=== PATIENT | male | born 1945 | race Caucasian/White ===

== ENCOUNTER 2020-10-05 19:00 | Emergency (ER) | payer MEDICARE, BC ==
[2020-10-05] MEDS ORDERED: Bacitracin Oint 1 GM U/D Packet TOP ONE (20:35)
[2020-10-05 20:40] VITALS: BP 161/61; PULSE 76
--- NOTE | 2020-10-05 21:02 | EDM.PDOC ---
ED HPI GENERAL MEDICAL PROBLEM - General Chief Complaint: Laceration Stated Complaint: CUT LEFT HAND WEBBING WITH KNIFE Time Seen by Provider: 10/05/20 20:33 Source of Information: Reports: Patient History Limitations: Reports: No Limitations - History of Present Illness INITIAL COMMENTS - FREE TEXT/NARRATIVE: Brigitte is a 75-year-old male presenting to the ED for evaluation of a laceration to the webbing of the left thumb. 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 The zip tie gave way causing the knife to come across and incised the webbing of the left thumb. The patient is not on any anticoagulation. Bleeding was controlled upon arrival. He is up-to-date on his tetanus which was last done in 2019. Patient has damage to the hypothenar and thenar muscles secondary to previous injury. The wound goes into the epidermis and dermis but does not appear to involve any of the deeper tissues like muscle. Patient denies any numbness or tingling. 4 Pain Score (Numeric/FACES): 4 - Related Data Allergies Allergy/AdvReac Type Severity Reaction Status Date / Time Penicillins Allergy Hives Verified 10/05/20 20:46 Home Meds: Home Meds Aspirin [Low Dose Aspirin EC] 81 mg PO BID 08/14/15 [History] Ibuprofen 800 mg PO BID PRN 08/14/15 [History] Multivitamin [Multiple Vitamins] 1 tab PO DAILY 08/14/15 [History] PARoxetine HCl [Paroxetine HCl] 20 mg PO DAILY 08/14/15 [History] Pantoprazole [ProTONIX] 40 mg PO DAILY 08/14/15 [History] amLODIPine [Norvasc] 5 mg PO DAILY 08/14/15 [History] atenoloL [Atenolol] 100 mg PO DAILY 08/14/15 [History] atorvaSTATin [Lipitor] 10 mg PO DAILY 08/14/15 [History] metFORMIN HCl [Metformin HCl] 500 mg PO BID 08/14/15 [History] Clopidogrel [Plavix] 1 tab PO DAILY 10/05/20 [History] Past Medical History HEENT History: Reports: Other (See Below) Other HEENT History: right eye prothesis Cardiovascular History: Reports: High Cholesterol, Hypertension Gastrointestinal History: Reports: Chronic Constipation, GERD Genitourinary History: Reports: BPH Musculoskeletal History: Reports: Arthritis, Back Pain, Chronic, Fibromyalgia, Osteoarthritis, Osteoporosis, Other (See Below) Other Musculoskeletal History: right shoulder pain Neurological History: Reports: Head Trauma Psychiatric History: Reports: Depression Endocrine/Metabolic History: Reports: Diabetes, Type II - Past Surgical History HEENT Surgical History: Reports: Eye Surgery Cardiovascular Surgical History: Reports: Percutaneous Transluminal Angioplasty GI Surgical History: Reports: Cholecystectomy, Colonoscopy, EGD Male Surgical History: Reports: None Neurological Surgical History: Reports: Lumbar Spine Musculoskeletal Surgical History: Reports: None Social & Family History - Tobacco Use Tobacco Use Status *Q: Never Tobacco User ED ROS GENERAL - Review of Systems Review Of Systems: See Below Constitutional: Reports: No Symptoms Musculoskeletal: Reports: Hand Pain (Left hand secondary to the laceration) Skin: Reports: Wound (0.5 cm laceration in the webbing of the left thumb) Neurological: Reports: No Symptoms ED EXAM, SKIN/RASH Exam: See Below Exam Limited By: No Limitations Extremities: Normal Range of Motion, Normal Capillary Refill, Other (Left hand pain with a 3.5 cm laceration in the thumb webbing secondary to incision with a utility knife.) Neurological: Alert, Oriented, Normal Cognition, No Motor/Sensory Deficits Skin: Warm, Dry, Wound/Incision (3.5 cm incision in the webbing of the thumb into the soft tissue with gapping.) Location, Skin: Upper Extremity, Left Characteristics: Linear ED SKIN PROCEDURES - Laceration/Wound Repair Left Hand Appearance: Subcutaneous Distal NVT: Neuro & Vascular Intact Local Anesthesia - Lidocaine (Xylocaine): 1% Plain Local Anesthetic Volume: 3cc Skin Prep: Other (Soap and water) Exploration/Debridement/Repair: Wound Explored, In a Bloodless Field, Explored to Base Closed with: Sutures Lac/Wound length In cm: 3.5 Suture Size: 4-0 # of Sutures: 8 Suture Type: Nylon, Interrupted Sterile Dressing Applied: Nurse Tetanus Status Addressed: Yes Complications: No Course - Vital Signs Last Recorded V/S: Last Vital Signs Temp 36.5 C 10/05/20 20:54 Pulse 76 10/05/20 20:54 Resp 16 10/05/20 20:54 BP 161/61 H 10/05/20 20:54 Pulse Ox 96 10/05/20 20:54 - Orders/Labs/Meds Meds: Medications Discontinued Medications Generic Name Dose Route Start Last Admin Trade Name Junaid PRN Reason Stop Dose Admin Bacitracin 1 dose 10/05/20 20:35 10/05/20 20:54 Bacitracin Oint 1 Gm U/D Packet TOP 10/05/20 20:36 1 dose ONETIME ONE Administration Lidocaine HCl 5 ml 10/05/20 20:35 10/05/20 20:54 Lidocaine 1% 5 Ml Sdv INJECT 10/05/20 20:36 5 ml ONETIME ONE Administration - Re-Assessments/Exams Free Text/Narrative Re-Assessment/Exam: 10/05/20 20:58 Cuong has a fairly clean laceration measuring 3.5 cm involving the web of the right thumb. The incision was made with a utility knife while trying to cut a zip tie. He has full range of motion of the thumb and fingers. The laceration goes into the soft tissue but not into the muscle. He does have significant thenar muscle atrophy from previous injury. The area was anesthetized using lidocaine 1% requiring 3 cc and closed using 4-0 Ethilon requiring 8 simple interrupted sutures. Likely bacitracin was applied over this and a dressing then was applied. Patient was instructed to return in 10 days for suture removal. He should return sooner if any sign of infection develops. Departure - Departure Time of Disposition: 20:57 Disposition: Home, Self-Care 01 Clinical Impression: Laceration of left hand Qualifiers: Encounter type: initial encounter Foreign body presence: with foreign body Qualified Code(s): S61.422A - Laceration with foreign body of left hand, initial encounter - Discharge Information Instructions: Laceration Care, Adult Referrals: Jonah Loza MD [Primary Care Provider] - Care Plan Goals: Please keep the wound clean and dry for the next 24 hours. After this period of time you may get the wound wet. Please watch for any signs of infection. This wound seem to be fairly clean so I do not think we need to start antibiotics but if any infection starts to develop please let us know so that we can start him. The sutures will need to be removed in 10 days. You can come to your primary care provider's office to have them removed. Sepsis Event Note (ED) - Evaluation Sepsis Screening Result: No Definite Risk - Focused Exam Vital Signs: Vital Signs Temp Pulse Resp BP Pulse Ox 10/05/20 20:54 36.5 C 76 16 161/61 H 96 10/05/20 20:39 36.5 C 76 16 161/61 H 96 - Problem List & Annotations (1) Laceration of left hand SNOMED Code(s): 901373479 Code(s): S61.412A - LACERATION WITHOUT FOREIGN BODY OF LEFT HAND, INIT ENCNTR Status: Acute Priority: Medium Current Visit: Yes Qualifiers: Encounter type: initial encounter Foreign body presence: with foreign body Qualified Code(s): S61.422A - Laceration with foreign body of left hand, initial encounter - Problem List Review Problem List Initiated/Reviewed/Updated: Yes
== END 2020-10-05 21:16 | disposition home or self-care (01) ==
LOC: JP.ED 19:00
DX: S61.422A Laceration with foreign body of left hand, initial encounter (principal); E78.00 Pure hypercholesterolemia, unspecified; I10 Essential (primary) hypertension; K21.9 Gastro-esophageal reflux disease without esophagitis; M19.90 Unspecified osteoarthritis, unspecified site; E11.9 Type 2 diabetes mellitus without complications; Z88.0 Allergy status to penicillin; Z79.82 Long term (current) use of aspirin; Z79.84 Long term (current) use of oral hypoglycemic drugs; Z79.02 Long term (current) use of antithrombotics/antiplatelets; Z79.899 Other long term (current) drug therapy; W26.0XXA Contact with knife, initial encounter
CPT/HCPCS: 12002; 99282-25